=== PATIENT | female | born 1945 | race Hispanic/Latino ===

== ENCOUNTER 2017-03-02 08:02 | Day surgery (SDC) | payer MEDICARE, OTHER ==
[2017-02-22 09:30] VITALS: BMI 23.1
[2017-03-02] MEDS ORDERED: Lactated Ringer's 1,000 ML IV SCH (08:05)
[2017-03-02] MEDS ORDERED: Propofol 10 mg/ml Inj (20 ML) ONE (08:27)
[2017-03-02 11:22] VITALS: O2SAT 98
[2017-03-02 12:50] VITALS: BP 155/85; PULSE 62; RESP 16; TEMP 98
== END 2017-03-02 12:55 | disposition home or self-care (01) ==
LOC: ENDO 08:02
PROVIDERS: ATTEND Specialist
DX: D12.0 Benign neoplasm of cecum (principal); D12.4 Benign neoplasm of descending colon; D12.3 Benign neoplasm of transverse colon; K57.30 Diverticulosis of large intestine without perforation or abscess without bleeding; K64.8 Other hemorrhoids; I10 Essential (primary) hypertension; E78.5 Hyperlipidemia, unspecified; F41.9 Anxiety disorder, unspecified
CPT/HCPCS: 45381; 45385; 88305; J2001; J2704; J7040; J7120

== ENCOUNTER 2017-08-11 06:53 | Day surgery (SDC) | payer MEDICARE, OTHER ==
[2017-02-22 09:30] VITALS: BMI 23.1
[2017-08-11] MEDS ORDERED: Lidocaine 2% Inj (20ml) ONE (08:01)
[2017-08-11] MEDS ORDERED: Propofol 10 mg/ml Inj (20 ML) ONE (08:01)
[2017-08-11] MEDS ORDERED: Sodium Chloride 0.9% 1,000 ML IV SCH (08:30)
[2017-08-11 09:29] VITALS: BP 169/87; PULSE 60; RESP 15; TEMP 98; O2SAT 100
== END 2017-08-11 10:07 | disposition home or self-care (01) ==
LOC: ENDO 06:53
PROVIDERS: ATTEND Specialist
DX: K22.70 Barrett's esophagus without dysplasia (principal); K29.50 Unspecified chronic gastritis without bleeding; K44.9 Diaphragmatic hernia without obstruction or gangrene; I10 Essential (primary) hypertension; K21.9 Gastro-esophageal reflux disease without esophagitis; E78.5 Hyperlipidemia, unspecified; F41.9 Anxiety disorder, unspecified; F32.89 Other specified depressive episodes
CPT/HCPCS: 43239; 88305; 88312; 88342; J2704; J7040 ×2

== ENCOUNTER 2017-10-27 07:54 | Day surgery (SDC) | payer MEDICARE, OTHER ==
[2017-02-22 09:30] VITALS: BMI 23.1
[2017-10-27 08:25] VITALS: RESP 18; TEMP 97.8
[2017-10-27] MEDS ORDERED: Propofol 10 mg/ml Inj (20 ML) ONE (08:56)
[2017-10-27] MEDS ORDERED: Sodium Chloride 0.9% 1,000 ML IV SCH (09:00)
[2017-10-27 10:47] VITALS: BP 143/88; PULSE 68; O2SAT 96
== END 2017-10-27 11:04 | disposition home or self-care (01) ==
LOC: ENDO 07:54
PROVIDERS: ATTEND Specialist
DX: D12.4 Benign neoplasm of descending colon (principal); D12.5 Benign neoplasm of sigmoid colon; D12.3 Benign neoplasm of transverse colon; K57.30 Diverticulosis of large intestine without perforation or abscess without bleeding; K64.8 Other hemorrhoids; K29.70 Gastritis, unspecified, without bleeding; K20.9 Esophagitis, unspecified
CPT/HCPCS: 45381; 45385; 88305; J2001; J2704; J7040 ×2